=== PATIENT | female | born 1945 | race Caucasian/White ===

== ENCOUNTER 2017-09-03 13:39 | Outpatient (CLI) | payer MEDICARE | END 2017-09-03 13:40 | disposition home or self-care (01) | LOC: BICMAMMO 13:39 | PROVIDERS: ATTEND Obstetrics & Gynecology | DX: Z12.31 Encounter for screening mammogram for malignant neoplasm of breast (principal) | CPT/HCPCS: 77063; 77067 ==

== ENCOUNTER 2018-09-09 12:41 | Outpatient (CLI) | payer MEDICARE ==
--- NOTE | 2018-09-09 13:18 | MMO ---
Bilateral MAMMO Bilat Screen [facility]. CLINICAL HISTORY: Patient is 73 years old and is seen for screening. The patient has no family history of breast cancer. The patient has no personal history of cancer. VIEWS: The views performed were: bilateral craniocaudal with tomosynthesis and bilateral mediolateral oblique with tomosynthesis. FILMS COMPARED: The present examination has been compared to prior imaging studies performed at [facility] on 09/03/2017, and at [facility] on 06/25/2012, 07/25/2012 and 03/04/2015. MAMMOGRAM FINDINGS: There are scattered fibroglandular densities. There are no suspicious masses, suspicious calcifications, or new areas of architectural distortion. IMPRESSION: THERE IS NO MAMMOGRAPHIC EVIDENCE OF MALIGNANCY. A ROUTINE FOLLOW-UP MAMMOGRAM IN 1 YEAR IS RECOMMENDED. THE RESULTS OF THIS EXAM WERE SENT TO THE PATIENT. ACR BI-RADS Category 1 - Negative MAMMOGRAPHY NOTE: 1. A negative mammogram report should not delay a biopsy if a dominant of clinically suspicious mass is present. 2. Approximately 10% to 15% of breast cancers are not detected by mammography. 3. Adenosis and dense breasts may obscure an underlying neoplasm.
== END 2018-09-09 12:42 | disposition home or self-care (01) ==
LOC: BICMAMMO 12:41
PROVIDERS: ATTEND Obstetrics & Gynecology
DX: Z12.31 Encounter for screening mammogram for malignant neoplasm of breast (principal)
CPT/HCPCS: 77063; 77067

== ENCOUNTER 2019-12-22 14:06 | Outpatient (CLI) | payer MEDICARE ==
--- NOTE | 2019-12-22 15:29 | MMO ---
Bilateral MAMMO Bilat Screen [facility]. CLINICAL HISTORY: Patient is 74 years old and is seen for screening. The patient has no family history of breast cancer. The patient has no personal history of cancer. VIEWS: The views performed were: bilateral craniocaudal with tomosynthesis; bilateral mediolateral oblique with tomosynthesis; and right mediolateral oblique. FILMS COMPARED: The present examination has been compared to prior imaging studies performed at [facility] on 09/03/2017 and 09/09/2018, and at [facility] on 07/25/2012 and 03/04/2015. This study has been interpreted with the assistance of computer-aided detection. MAMMOGRAM FINDINGS: There are scattered fibroglandular densities. There are no suspicious masses, suspicious calcifications, or new areas of architectural distortion. IMPRESSION: THERE IS NO MAMMOGRAPHIC EVIDENCE OF MALIGNANCY. A ROUTINE FOLLOW-UP MAMMOGRAM IN 1 YEAR IS RECOMMENDED. THE RESULTS OF THIS EXAM WERE SENT TO THE PATIENT. ACR BI-RADS Category 1 - Negative MAMMOGRAPHY NOTE: 1. A negative mammogram report should not delay a biopsy if a dominant of clinically suspicious mass is present. 2. Approximately 10% to 15% of breast cancers are not detected by mammography. 3. Adenosis and dense breasts may obscure an underlying neoplasm. Reported by: MARLEY MEJÍA MD Electonically Signed: [id number]
== END 2019-12-22 14:07 | disposition home or self-care (01) ==
LOC: BICMAMMO 14:06
PROVIDERS: ATTEND Registered Nurse
DX: Z12.31 Encounter for screening mammogram for malignant neoplasm of breast (principal)
CPT/HCPCS: 77063; 77067

== ENCOUNTER 2021-09-12 12:34 | Outpatient (CLI) | payer MEDICARE | END 2021-09-12 12:35 | disposition home or self-care (01) | LOC: BICMAMMO 12:34 | PROVIDERS: ATTEND Internal Medicine | DX: Z12.31 Encounter for screening mammogram for malignant neoplasm of breast (principal) | CPT/HCPCS: 77063; 77067 ==

== ENCOUNTER 2022-12-21 13:46 | Outpatient (CLI) | payer MEDICARE | END 2022-12-21 13:47 | disposition home or self-care (01) | LOC: BICCT 13:46 | PROVIDERS: ATTEND Registered Nurse | DX: Z12.2 Encounter for screening for malignant neoplasm of respiratory organs (principal); R91.8 Other nonspecific abnormal finding of lung field; Z87.891 Personal history of nicotine dependence | CPT/HCPCS: 71271 ==

== ENCOUNTER 2022-12-27 13:46 | Outpatient (CLI) | payer MEDICARE | END 2022-12-27 13:47 | disposition home or self-care (01) | LOC: BICCT 13:46 | PROVIDERS: ATTEND Registered Nurse | DX: R91.8 Other nonspecific abnormal finding of lung field (principal); R91.1 Solitary pulmonary nodule; J98.4 Other disorders of lung | CPT/HCPCS: 71260 ==

== ENCOUNTER 2023-01-10 10:39 | Outpatient (CLI) | payer MEDICARE ==
[2023-01-10] MEDS ORDERED: Magnevist 469MG/ML 20 ML VIAL ONE (10:56)
== END 2023-01-10 10:40 | disposition home or self-care (01) ==
LOC: PET 10:39
PROVIDERS: ATTEND Internal Medicine
DX: C34.11 Malignant neoplasm of upper lobe, right bronchus or lung (principal)
CPT/HCPCS: 70553; 78815; A9552

== ENCOUNTER 2023-01-29 14:27 | Outpatient (CLI) | payer MEDICARE ==
[~2023-01-29 14:27] MED LIST: Magnevist 469MG/ML 20 ML VIAL ONE
== END 2023-01-29 14:28 | disposition home or self-care (01) ==
LOC: BICMRI 14:27
PROVIDERS: ATTEND Internal Medicine
DX: M99.85 Other biomechanical lesions of pelvic region (principal); C34.11 Malignant neoplasm of upper lobe, right bronchus or lung; M67.853 Other specified disorders of tendon, right hip; M67.854 Other specified disorders of tendon, left hip; K57.30 Diverticulosis of large intestine without perforation or abscess without bleeding; M47.817 Spondylosis without myelopathy or radiculopathy, lumbosacral region; M51.37 Other intervertebral disc degeneration, lumbosacral region; M43.17 Spondylolisthesis, lumbosacral region; G96.191 Perineural cyst; N83.8 Other noninflammatory disorders of ovary, fallopian tube and broad ligament
CPT/HCPCS: 72197; 93306; A9579

== ENCOUNTER 2023-02-05 09:24 | Day surgery (SDC) | payer MEDICARE ==
[2023-02-04 10:33] VITALS: BMI 35.0
[2023-02-05] MEDS ORDERED: Acetaminophen 500 MG TAB ONE (12:00)
[2023-02-05] MEDS ORDERED: Ketorolac Tromethamine 30 MG/ML VIAL ONE (12:00)
[2023-02-05] MEDS ORDERED: EPINEPHrine 1 MG/ML AMP ONE (13:52)
[2023-02-05] MEDS ORDERED: Bupivacaine 0.25% HCL 30 ML VIAL ONE (13:52)
[2023-02-05] MEDS ORDERED: Lidocaine 1% (PF) 30 ML VIAL ONE (13:52)
[2023-02-05] MEDS ORDERED: Propofol 500 MG/50 ML VIAL ONE (14:56)
[2023-02-05] MEDS ORDERED: fentaNYL 50 mcg/mL 1 mL Vial ONE (14:56)
[2023-02-05] MEDS ORDERED: Ketamine 50 MG/ML (10ML VIAL) ONE (14:56)
[2023-02-05] MEDS ORDERED: Sodium Chloride 0.9% 100 ML ONE (15:03)
[2023-02-05] MEDS ORDERED: CEFAZOLIN 2 GM VIAL ONE (15:03)
[2023-02-05] MEDS ORDERED: PROPOFOL 200 MG/20 ML VIAL ONE (15:07)
== END 2023-02-05 16:33 | disposition home or self-care (01) ==
LOC: SDC 09:24
PROVIDERS: ATTEND Specialist
PROC: 0JH60WZ Insertion of Totally Implantable Vascular Access Device into Chest Subcutaneous Tissue and Fascia, Open Approach (ICD-10-PCS; principal; 2023-02-05)
DX: C34.91 Malignant neoplasm of unspecified part of right bronchus or lung (principal); Z87.891 Personal history of nicotine dependence; Z88.8 Allergy status to other drugs, medicaments and biological substances
CPT/HCPCS: 36561; 71045; J3010; C1788; J0171; J1642; J1885; J2001; J2704; J3490; S0020

== ENCOUNTER 2023-04-01 10:32 | Outpatient (CLI) | payer MEDICARE ==
[2023-04-01] MEDS ORDERED: Iopamidol 370 76% 100 ML VIAL ONE (14:56)
== END 2023-04-01 10:33 | disposition home or self-care (01) ==
LOC: BICCT 10:32
PROVIDERS: ATTEND Nurse Practitioner Family
DX: C34.11 Malignant neoplasm of upper lobe, right bronchus or lung (principal); R91.8 Other nonspecific abnormal finding of lung field
CPT/HCPCS: 71260

== ENCOUNTER 2024-04-14 07:59 | Outpatient (CLI) | payer MEDICARE | END 2024-04-14 08:00 | disposition home or self-care (01) | LOC: BICCT 07:59 | PROVIDERS: ATTEND Nurse Practitioner Family | DX: C34.11 Malignant neoplasm of upper lobe, right bronchus or lung (principal) | CPT/HCPCS: 71250 ==

== ENCOUNTER 2025-01-05 13:03 | Outpatient (CLI) | payer MEDICARE | END 2025-01-05 13:04 | disposition home or self-care (01) | LOC: BICMAMMO 13:03 | PROVIDERS: ATTEND Registered Nurse | DX: Z78.0 Asymptomatic menopausal state (principal); M85.89 Other specified disorders of bone density and structure, multiple sites | CPT/HCPCS: 77080 ==

== ENCOUNTER 2025-05-13 13:53 | Outpatient (CLI) | payer MEDICARE | END 2025-05-13 13:54 | disposition home or self-care (01) | LOC: BICCT 13:53 | PROVIDERS: ATTEND Nurse Practitioner Family | DX: C34.11 Malignant neoplasm of upper lobe, right bronchus or lung (principal); I70.0 Atherosclerosis of aorta; I25.10 Atherosclerotic heart disease of native coronary artery without angina pectoris; J98.4 Other disorders of lung; R91.1 Solitary pulmonary nodule; M47.819 Spondylosis without myelopathy or radiculopathy, site unspecified; M43.8X9 Other specified deforming dorsopathies, site unspecified; K57.30 Diverticulosis of large intestine without perforation or abscess without bleeding; Z98.890 Other specified postprocedural states | CPT/HCPCS: 71250 ==